=== PATIENT | male | born 1935 | race Caucasian/White ===

== ENCOUNTER 2016-10-14 13:20 | Emergency (ER) | payer MEDICARE, OTHER ==
[2016-10-14 13:31] VITALS: BP 145/89
[2016-10-14] MEDS ORDERED: Lidocaine 1% 50 ML MDV INJECT ONE (13:33)
--- NOTE | 2016-10-14 13:38 | EDM.PDOC ---
ED HPI Skin/Rash - General Chief Complaint: Laceration Stated Complaint: FALL/LACERATION TO LEFT EYEBROW Time Seen by Provider: 10/14/16 13:25 Source: Reports: Patient History Limitations: Reports: No limitations - History of Present Illness INITIAL COMMENTS - FREE TEXT/NARRATIVE: Patient is an 81-year-old male who presents ED complaining of lacerations to the left eyebrow secondary to a fall. Patient states while carrying light out to his vehicle patient tripped falling and hitting his head on the concrete sidewalk. Patient was wearing sunglasses at that time causing laceration to the left eyebrow. Patient denies any loss of consciousness was able to get up on his own accord. He denies any neck/back pain, numbness or tingling to extremities, nausea/vomiting, vision changes, shortness of breath, chest pain, dizziness, lightheadedness, or any additional complaints. States his tetanus is up-to-date. Patient states he takes aspirin daily and does not take any anticoagulant medications. Patient was on warfarin for mitral valve replacement for presumably atrial fibrillation that has since resolved, this was discontinued. 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) - Related Data Allergies Allergy/AdvReac Type Severity Reaction Status Date / Time belladonna alkaloids Allergy Other Verified 10/14/16 13:37 brimonidine [From Alphagan P] Allergy Redness Verified 10/14/16 13:37 brinzolamide [From Azopt] Allergy Other Verified 10/14/16 13:37 Home Meds: Ambulatory Orders Medication Instructions Recorded Confirmed Aspirin [[place] Aspirin] 81 mg PO DAILY 06/04/16 10/14/16 Metoprolol Succinate 75 mg PO DAILY 06/04/16 10/14/16 Simvastatin [Zocor] 40 mg PO BEDTIME 06/04/16 10/14/16 Brinzolamide [Azopt 1% Ophth Susp] 1 drop EYERT BID 06/10/16 10/14/16 Cephalexin [IJD: Cephalexin] 500 mg PO .EVERY 8 HOURS #30 cap 10/14/16 Latanoprost [Xalatan 0.005% Ophth 1 drop EYEBOTH DAILY 10/14/16 10/14/16 Soln] ED ROS GENERAL - Review of Systems Review Of Systems: See Below HEENT: Reports: Other (left eyebrow pain) Respiratory: Denies: shortness of breath, cough, sputum Cardiovascular: Denies: Chest pain, Dyspnea on exertion, Lightheadedness, Palpitations, PND, Syncope GI/Abdominal: Denies: Abdominal pain, Nausea, Vomiting : Reports: no symptoms Musculoskeletal: Denies: neck pain, shoulder pain, arm pain, back pain Skin: Reports: other (two deep lacerations to the left lateral eyebrow) Neurological: Denies: confusion, dizziness, headache, numbness, paresthesia, pre -existing deficit, tingling, difficulty walking, weakness ED EXAM, SKIN/RASH Exam: See Below Exam Limited By: No limitations General Appearance: alert, WD/WN, no apparent distress Eye Exam: bilateral eye: EOMI, PERRL Ears: normal external exam, normal canal, hearing grossly normal Nose: normal inspection, normal mucosa, no blood Throat/Mouth: Normal inspection, Normal oropharynx, Normal voice, No airway compromise Head: facial swelling (left eyebrow), facial tenderness (mild left eyebrow) Neck: normal inspection, supple, non-tender, full range of motion Respiratory/Chest: no respiratory distress, lungs clear, normal breath sounds Cardiovascular: normal peripheral pulses, regular rate, rhythm Peripheral Pulses: 2+: radial (L) Back Exam: normal inspection, full range of motion. No: paraspinal tenderness, vertebral tenderness Extremities: normal inspection, normal range of motion, non-tender, no pedal edema, normal capillary refill Neurological: alert, oriented, CN II-XII intact, normal cognition, normal gait, no motor/sensory deficits Psychiatric: normal affect, normal mood Skin: Warm, Dry, Normal color, No rash Location, Skin: face (Left lateral eye brow: two deep lacerations. ) Front/Back Body Diagram: 1 - 2 cm deep laceration to the left eye brow. 1 cm deep stellate laceration just to the left of the eye. Mild bleeding present with ecchymosis and swelling. Minimal pain with palpation of the zygomatic arch and orbit. No crepitus noted to the facial bones. ED SKIN PROCEDURES - Laceration/Wound Repair Left Forehead Lac/wound length in cm: 2 Appearance: subcutaneous Distal NVT: neuro & vascular intact Anesthetic type: local Local anesthesia - Lidocaine (Xylocaine): 1% plain Local anesthetic volume: 3cc Skin prep: saline Exploration/Debridement/Repair: wound explored, explored to base, no foreign material found Closed with: sutures Suture size: 4-0 # of sutures: 11 Suture type: prolene Drain placement: No Sterile dressing applied: nurse Tetanus status addressed: Yes Complications: No Left Face Lac/wound length in cm: 1 Appearance: subcutaneous Distal NVT: neuro & vascular intact, no tendon injury Anesthetic type: local Local anesthesia - Lidocaine (Xylocaine): 1% plain Local anesthetic volume: 2cc Skin prep: saline Exploration/Debridement/Repair: wound explored, explored to base, no foreign material found Closed with: sutures Suture size: other (4.0 and 5.0) # of sutures: 6 Suture type: prolene Drain placement: No Sterile dressing applied: nurse Tetanus status addressed: Yes Complications: No Course - Vital Signs Last Recorded V/S: Last Vital Signs Temp 97.5 F 10/14/16 13:25 Pulse 65 10/14/16 13:25 Resp 18 10/14/16 13:25 BP 145/89 H 10/14/16 13:25 Pulse Ox 98 10/14/16 13:25 - Orders/Labs/Meds Meds: Medications Discontinued Medications Generic Name Dose Route Start Last Admin Trade Name Black PRN Reason Stop Dose Admin Lidocaine HCl 50 ml 10/14/16 13:33 10/14/16 15:10 Xylocaine 1% INJECT 10/14/16 13:34 50 ml ONETIME ONE Administration - Re-Assessments/Exams Free Text/Narrative Re-Assessment/Exam: Two deep lacerations noted to the left eye brown requiring further cleaning to completely assess the depth and lenght. They both will require suturing. I have ordered lidocaine 1%. Tetanus status is uptodate. 10/14/16 13:37 Departure - Departure Time of Disposition: 14:48 Disposition: Home, Self-Care 01 Condition: good Clinical Impression: Complex laceration of face Qualifiers: Encounter type: initial encounter Qualified Code(s): S01.91XA - Laceration without foreign body of unspecified part of head, initial encounter Contusion of face Qualifiers: Encounter type: initial encounter Qualified Code(s): S00.83XA - Contusion of other part of head, initial encounter Prescriptions: Cephalexin [IJD: Cephalexin] 500 mg PO .EVERY 8 HOURS #30 cap Instructions: Facial Laceration, Facial or Scalp Contusion, [id number] Referrals: Deven Recinos Jr, MD [Primary Care Provider] - Forms: ED Department Discharge Additional Instructions: Laceration to the left eyebrow required 17 sutures in total. Please see provider while in [place], [place] in 10 days for suture removal. Suggest applying ice to the affected area 6 times daily, 20 minutes in duration, do not place ice directly on the skin. Cleanse site twice daily with soap and water, pat dry, and apply bacitracin to the affected area. Keep area clean and dry. Utilize dressing if you have any drainage. Take ibuprofen and tylenol in alternating fashion for pain. Take the keflex 500mg TID for 5 days. Take probiotic with antibiotic. Followup with a provider in [place] if you have increased swelling, increased redness, or purulent drainage, worst headache of your life, n/v, vision changes, or any focal neurological deficits. Do not submerge laceration in pool, guajardo, river, ocean, or hot tub water until completely healed.
== END 2016-10-14 15:00 | disposition home or self-care (01) ==
LOC: JD.ED 13:20
DX: S01.81XA Laceration without foreign body of other part of head, initial encounter (principal); S01.112A Laceration without foreign body of left eyelid and periocular area, initial encounter; W01.198A Fall on same level from slipping, tripping and stumbling with subsequent striking against other object, initial encounter; Y92.009 Unspecified place in unspecified non-institutional (private) residence as the place of occurrence of the external cause; Z79.82 Long term (current) use of aspirin; Z79.899 Other long term (current) drug therapy; Z88.8 Allergy status to other drugs, medicaments and biological substances
CPT/HCPCS: 12013; 13132; 99282-25; 99283-25

== ENCOUNTER 2019-07-11 17:20 | Emergency (ER) | payer MEDICARE, OTHER ==
[2019-07-11 18:03] VITALS: BP 169/83; PULSE 57
[2019-07-11] MEDS ORDERED: Sodium Chloride 0.9% 10 ML Syringe FLUSH PRN (18:28)
[2019-07-11] MEDS ORDERED: Ondansetron 4 MG/2 ML SDV IVPUSH ONE (18:29)
[2019-07-11] MEDS ORDERED: HYDROmorphone 0.5 MG/0.5 ML Syringe IVPUSH ONE (18:29)
[2019-07-11] MEDS ORDERED: Sodium Chloride 0.9% 1,000 ML IV SCH (18:30)
--- NOTE | 2019-07-11 19:08 | EDM.PDOC ---
ED HPI GENERAL MEDICAL PROBLEM - General Chief Complaint: Abdominal Pain Stated Complaint: LOW ABDOMINAL AND BACK PAIN AND SPASAMS Time Seen by Provider: 07/11/19 17:57 Source of Information: Reports: Patient, RN Notes Reviewed - History of Present Illness INITIAL COMMENTS - FREE TEXT/NARRATIVE: 84 year old male comes in with abd pain that started yesterday, more severe this afternoon associated with generalized cramping, mild vomiting, mostly dry heaves. No chest pain, fever or chills. No diarrhea, melena. He does still have his appendix and GB. Hx of prior hernia surgery. Abdominal Pain Score (Numeric/FACES): 2 - Related Data Allergies Allergy/AdvReac Type Severity Reaction Status Date / Time belladonna alkaloids Allergy Other Verified 07/11/19 18:03 brimonidine [From Alphagan P] Allergy Redness Verified 07/11/19 18:03 Home Meds: Home Meds Aspirin [[place] Aspirin] 81 mg PO DAILY 06/04/16 [History] Metoprolol Succinate 75 mg PO DAILY 06/04/16 [History] Simvastatin [Zocor] 40 mg PO BEDTIME 06/04/16 [History] Brinzolamide [Azopt 1% Ophth Susp] 1 drop EYERT BID 06/10/16 [History] Cephalexin [IJD: Cephalexin] 500 mg PO .EVERY 8 HOURS #30 cap 10/14/16 [Rx] Latanoprost [Xalatan 0.005% Ophth Soln] 1 drop EYEBOTH DAILY 10/14/16 [History] Ondansetron [Zofran ODT] 4 mg PO Q6H PRN #7 tab.dis 07/11/19 [Rx] Past Medical History HEENT History: Reports: Glaucoma Cardiovascular History: Reports: Heart Valve Replacement, Hypertension - Past Surgical History Musculoskeletal Surgical History: Reports: Knee Replacement, Shoulder Replacement Social & Family History - Tobacco Use Smoking Status *Q: Never Smoker - Caffeine Use Caffeine Use: Reports: None ED ROS GENERAL - Review of Systems Review Of Systems: See Below Constitutional: Denies: Fever, Chills, Diaphoresis HEENT: Reports: No Symptoms Respiratory: Denies: Shortness of Breath Cardiovascular: Denies: Chest Pain GI/Abdominal: Reports: Abdominal Pain, Nausea, Vomiting. Denies: Diarrhea, Hematochezia, Melena Musculoskeletal: Denies: Shoulder Pain, Arm Pain Skin: Reports: No Symptoms Neurological: Reports: No Symptoms ED EXAM, GI/ABD - Physical Exam Exam: See Below General Appearance: Alert, Mild Distress Throat/Mouth: Normal Inspection, Normal Oropharynx Neck: Supple, Full Range of Motion Respiratory/Chest: No Respiratory Distress, Lungs Clear, Normal Breath Sounds Cardiovascular: Regular Rate, Rhythm GI/Abdominal Exam: Soft, Tender (mild diffuse tenderness). No: Guarding, Rebound Back Exam: No: CVA Tenderness (L), CVA Tenderness (R) Extremities: Normal Inspection, Normal Range of Motion Neurological: Alert, Oriented, No Motor/Sensory Deficits Skin Exam: Warm, Dry, Normal Color, No Rash Course - Vital Signs Last Recorded V/S: Last Vital Signs Temp 97.2 F 07/11/19 18:00 Pulse 57 L 07/11/19 18:00 Resp 16 07/11/19 18:00 BP 169/83 H 07/11/19 18:00 Pulse Ox 95 07/11/19 18:00 - Orders/Labs/Meds Orders: Active Orders 24 hr Category Date Time Status Peripheral IV Care [RC] . DIRECTED Care 07/11/19 18:29 Active Abdomen 2V AP Flat Upright [CR] Stat Exams 07/11/19 18:52 Taken Peripheral IV Insertion Adult [OM.PC] Stat Oth 07/11/19 18:29 Ordered Labs: Laboratory Tests 07/11/19 07/11/19 07/11/19 Range/Units 18:47 18:47 18:47 WBC 7.18 (4.23-9.07) K/mm3 RBC 4.40 L (4.63-6.08) M/mm3 Hgb 13.8 (13.7-17.5) gm/dl Hct 41.0 (40.1-51.0) % MCV 93.2 H (79.0-92.2) fl MCH 31.4 (25.7-32.2) pg MCHC 33.7 (32.2-35.5) g/dl RDW Std Deviation 40.4 (35.1-43.9) fL Plt Count 221 (163-337) K/mm3 MPV 8.8 L (9.4-12.3) fl Neut % (Auto) 88.5 H (34.0-67.9) % Lymph % (Auto) 5.4 L (21.8-53.1) % [place] % (Auto) 5.2 L (5.3-12.2) % Eos % (Auto) 0.3 L (0.8-7.0) Baso % (Auto) 0.3 (0.1-1.2) % Neut # (Auto) 6.36 H (1.78-5.38) K/mm3 Lymph # (Auto) 0.39 L (1.32-3.57) K/mm3 [place] # (Auto) 0.37 (0.30-0.82) K/mm3 Eos # (Auto) 0.02 L (0.04-0.54) K/mm3 Baso # (Auto) 0.02 (0.01-0.08) K/mm3 Manual Slide Review Abnormal smear Sodium 136 (136-145) mEq/L Potassium 4.5 (3.5-5.1) mEq/L Chloride 102 (98-107) mEq/L Carbon Dioxide 27 (21-32) mEq/L Anion Gap 11.5 (5-15) BUN 26 H (7-18) mg/dL Creatinine 1.2 (0.7-1.3) mg/dL Est Cr Clr Drug Dosing 59.24 mL/min Estimated GFR (MDRD) 58 (>60) mL/min BUN/Creatinine Ratio 21.7 H (14-18) Glucose 121 H (83-115) mg/dL Calcium 10.0 (8.5-10.1) mg/dL Total Bilirubin 0.7 (0.2-1.0) mg/dL AST 32 (15-37) U/L ALT 29 (16-63) U/L Alkaline Phosphatase 272 H (46-116) U/L C-Reactive Protein < 0.2 (<1.0) mg/dL Total Protein 7.7 (6.4-8.2) g/dl Albumin 4.2 (3.4-5.0) g/dl Globulin 3.5 gm/dL Albumin/Globulin Ratio 1.2 (1-2) Lipase 120 (73-393) U/L Meds: Medications Discontinued Medications Generic Name Dose Route Start Last Admin Trade Name Freq PRN Reason Stop Dose Admin Hydromorphone HCl 0.5 mg 07/11/19 18:29 07/11/19 18:54 Dilaudid IVPUSH 07/11/19 18:30 0.5 mg ONETIME ONE Administration Sodium Chloride 1,000 mls @ 999 mls/hr 07/11/19 18:30 07/11/19 18:51 Normal Saline IV 999 mls/hr ONETIME NISHI Administration Ondansetron HCl 4 mg 07/11/19 18:29 07/11/19 18:51 Zofran IVPUSH 07/11/19 18:30 4 mg ONETIME ONE Administration Sodium Chloride 10 ml 07/11/19 18:28 07/11/19 18:51 Saline Flush FLUSH 10 ml ASDIRECTED PRN Administration Keep Vein Open - Re-Assessments/Exams Free Text/Narrative Re-Assessment/Exam: 07/11/19 23:07 WBC, CRP did come back normal. Good relief of nausea, pain with IV zofran, 0.5 mg dilaudid IV. Flat and upright of abd show no air fluid levels, moderate amt of gas and stool in colon, discharge instr. as documented. Departure - Departure Time of Disposition: 20:22 Disposition: Home, Self-Care 01 Condition: Fair Clinical Impression: Abdominal pain, Vomiting - Discharge Information Prescriptions: Ondansetron [Zofran ODT] 4 mg PO Q6H PRN #7 tab.dis PRN Reason: Nausea/Vomiting Instructions: Abdominal Pain, Adult, [id number], Vomiting, Adult Referrals: Deven Recinos Jr, MD [Primary Care Provider] - Forms: ED Department Discharge Additional Instructions: clear liquids until noon tomorrow, than very careful bland diet as tolerated. Mag citrate, drink 1/3 to 1/2 bottle tonight. Drink the remainder tomorrow morning if you have not had a good BM by than. Zofran ODT if needed for any further nausea or vomiting. Begin probiotic this evening and take that twice daily for 5 days and as needed after that. See Dr Recinos as planned. Return to ED as needed if symptoms worsening in any way. - My Orders Last 24 Hours: My Active Orders 07/11/19 18:29 Peripheral IV Care [RC] . DIRECTED Peripheral IV Insertion Adult [OM.PC] Stat 07/11/19 18:52 Abdomen 2V AP Flat Upright [CR] Stat - Assessment/Plan Last 24 Hours: My Active Orders 07/11/19 18:29 Peripheral IV Care [RC] . DIRECTED Peripheral IV Insertion Adult [OM.PC] Stat 07/11/19 18:52 Abdomen 2V AP Flat Upright [CR] Stat
--- NOTE | 2019-07-12 10:18 | CR ---
Abdomen: Supine and upright views of the abdomen were obtained. Increased density is noted within the lower pelvis having the appearance of Paget's disease. Diffuse joint space narrowing is seen within both hips. Bowel gas pattern appears within normal limits. Previous sternotomy is noted. Scoliosis is noted within the spine. No free air is seen. Mild increased stool is noted within the colon. Impression: 1. Mild increased stool within the colon. 2. Other findings as noted above which are felt to be incidental. Diagnostic code #2 This report was dictated in [place] Standard Time
== END 2019-07-11 20:41 | disposition home or self-care (01) ==
LOC: JD.ED 17:20
DX: R10.84 Generalized abdominal pain (principal); R11.2 Nausea with vomiting, unspecified; H40.9 Unspecified glaucoma; I10 Essential (primary) hypertension; Z88.8 Allergy status to other drugs, medicaments and biological substances; Z79.82 Long term (current) use of aspirin; Z79.899 Other long term (current) drug therapy
CPT/HCPCS: 36415; 74019; 80053; 83690; 85025; 86140; 96374; 96375; 99284; J1170; J2405; J7030; 99283

== ENCOUNTER 2020-03-16 01:50 | Emergency (ER) | payer MEDICARE, OTHER ==
[2020-03-16 01:59] VITALS: BP 164/115; PULSE 71
[2020-03-16] MEDS ORDERED: Sodium Chloride 0.9% 10 ML Syringe FLUSH PRN (02:10)
--- NOTE | 2020-03-16 02:22 | EDM.PDOC ---
ED HPI GENERAL MEDICAL PROBLEM - General Chief Complaint: Cardiovascular Problem Stated Complaint: TIGHTNESS IN CHEST Time Seen by Provider: 03/16/20 02:00 Source of Information: Reports: Patient, RN Notes Reviewed - History of Present Illness INITIAL COMMENTS - FREE TEXT/NARRATIVE: 85 yr old male awakened with ant. chest pain about 90 minutes ago, tightness across L ant. chest without radiation, moderately severe for a short period of time, may be up to about a half hr. Than aware of palpitations after that. Discomfort all resolved on arrival to ED. Did not get short of breath. No nausea, vomiting or diaphoresis. Hx of CABG, A flutter and for about the past month a fib. on warfarin. INR yesterday about 4.2, advised to hold his coumadin for a day or 2. No chest pain at time of exam. Left Middle Chest Pain Score (Numeric/FACES): 3 - Related Data Allergies Allergy/AdvReac Type Severity Reaction Status Date / Time belladonna alkaloids Allergy Severe Redness Verified 03/16/20 02:00 brimonidine [From Alphagan P] Allergy Severe Redness Verified 03/16/20 02:00 Home Meds: Home Meds Aspirin [[place] Aspirin] 81 mg PO DAILY 06/04/16 [History] Metoprolol Succinate 50 mg PO DAILY 06/04/16 [History] Brinzolamide [Azopt 1% Ophth Susp] 1 drop EYERT BID 06/10/16 [History] Latanoprost [Xalatan 0.005% Ophth Soln] 1 drop EYEBOTH DAILY 10/14/16 [History] Pravastatin [Pravachol] 40 mg PO DAILY 03/16/20 [History] Warfarin [Coumadin] 2 mg PO ASDIRECTED 03/16/20 [History] Warfarin [Coumadin] 4 mg PO ASDIRECTED 03/16/20 [History] Past Medical History HEENT History: Reports: Glaucoma Cardiovascular History: Reports: Afib, Heart Valve Replacement, Hypertension Respiratory History: Reports: None Gastrointestinal History: Reports: None Genitourinary History: Reports: None Neurological History: Reports: None Psychiatric History: Reports: None Endocrine/Metabolic History: Reports: None Hematologic History: Reports: Anticoagulation Therapy Immunologic History: Reports: None Oncologic (Cancer) History: Reports: None Dermatologic History: Reports: None - Infectious Disease History Infectious Disease History: Reports: None - Past Surgical History Cardiovascular Surgical History: Reports: Valve Replacement, Other (See Below) Other Cardiovascular Surgeries/Procedures: Mitral Valve Replacement Musculoskeletal Surgical History: Reports: Knee Replacement, Shoulder Replacement Social & Family History - Tobacco Use Smoking Status *Q: Never Smoker - Caffeine Use Caffeine Use: Reports: Coffee - Recreational Drug Use Recreational Drug Use: No ED ROS GENERAL - Review of Systems Review Of Systems: See Below Constitutional: Denies: Fever, Chills, Diaphoresis HEENT: Denies: Throat Pain Respiratory: Denies: Shortness of Breath, Wheezing, Pleuritic Chest Pain Cardiovascular: Reports: Chest Pain (gone), Palpitations GI/Abdominal: Denies: Abdominal Pain, Nausea, Vomiting Musculoskeletal: Denies: Neck Pain, Shoulder Pain, Arm Pain, Back Pain Skin: Reports: No Symptoms Neurological: Reports: No Symptoms ED EXAM, GENERAL - Physical Exam Exam: See Below General Appearance: Alert, No Apparent Distress Eye Exam: Bilateral Eye: PERRL Head: Atraumatic Neck: Supple Respiratory/Chest: No Respiratory Distress, Lungs Clear, Normal Breath Sounds Cardiovascular: Irregularly Irregular GI/Abdominal: Soft, Non-Tender Back Exam: No: CVA Tenderness (L), CVA Tenderness (R) Extremities: Normal Inspection, Pedal Edema (trace edema R leg). No: Leg Pain, Increased Warmth, Redness Neurological: Alert, Oriented, No Motor/Sensory Deficits Skin Exam: Warm, Dry, Normal Color EKG INTERPRETATION Rhythm: A-Fib Rate (Beats/Min): 60 [place] Neck: Normal P-Wave: Absent QRS: Normal ST-T: Other (t wave flat inf. leads. slight st depression V4-6) Course - Vital Signs Last Recorded V/S: Last Vital Signs Temp 97.9 F 03/16/20 01:55 Pulse 71 03/16/20 01:55 Resp 16 03/16/20 01:55 BP 164/115 H 03/16/20 01:55 Pulse Ox 92 L 03/16/20 01:55 - Orders/Labs/Meds Orders: Active Orders 24 hr Category Date Time Status EKG 12 Lead [EKG Documentation Completion] [RC] STAT Care 03/16/20 02:10 Active Peripheral IV Care [RC] . DIRECTED Care 03/16/20 02:11 Active Chest 1V Frontal [CR] Stat Exams 03/16/20 02:10 Taken Sodium Chloride 0.9% [Saline Flush] Med 03/16/20 02:10 Active 10 ml FLUSH ASDIRECTED PRN Peripheral IV Insertion Adult [OM.PC] Stat Oth 03/16/20 02:10 Ordered Medication Orders Sodium Chloride (Saline Flush) 10 ml FLUSH ASDIRECTED PRN PRN Reason: Keep Vein Open Last Admin: 03/16/20 02:19 Dose: 10 ml Documented by: ELBA Labs: Laboratory Tests 03/16/20 03/16/20 03/16/20 Range/Units 02:00 02:00 03:55 WBC 3.80 L (4.23-9.07) K/mm3 RBC 4.35 L (4.63-6.08) M/mm3 Hgb 13.6 L (13.7-17.5) gm/dl Hct 41.0 (40.1-51.0) % MCV 94.3 H (79.0-92.2) fl MCH 31.3 (25.7-32.2) pg MCHC 33.2 (32.2-35.5) g/dl RDW Std Deviation 42.5 (35.1-43.9) fL Plt Count 167 (163-337) K/mm3 MPV 9.6 (9.4-12.3) fl Neut % (Auto) 53.3 (34.0-67.9) % Lymph % (Auto) 31.3 (21.8-53.1) % Person % (Auto) 10.8 (5.3-12.2) % Eos % (Auto) 3.2 (0.8-7.0) Baso % (Auto) 1.1 (0.1-1.2) % Neut # (Auto) 2.03 (1.78-5.38) K/mm3 Lymph # (Auto) 1.19 L (1.32-3.57) K/mm3 Person # (Auto) 0.41 (0.30-0.82) K/mm3 Eos # (Auto) 0.12 (0.04-0.54) K/mm3 Baso # (Auto) 0.04 (0.01-0.08) K/mm3 Sodium 140 (136-145) mEq/L Potassium 4.1 (3.5-5.1) mEq/L Chloride 105 (98-107) mEq/L Carbon Dioxide 26 (21-32) mEq/L Anion Gap 13.1 (5-15) BUN 26 H (7-18) mg/dL Creatinine 1.0 (0.7-1.3) mg/dL Est Cr Clr Drug Dosing 69.82 mL/min Estimated GFR (MDRD) > 60 (>60) mL/min BUN/Creatinine Ratio 26.0 H (14-18) Glucose 96 (83-115) mg/dL Calcium 9.2 (8.5-10.1) mg/dL Total Bilirubin 0.5 (0.2-1.0) mg/dL AST 38 H (15-37) U/L ALT 40 (16-63) U/L Alkaline Phosphatase 302 H (46-116) U/L Troponin I < 0.017 < 0.017 (0.00-0.056) ng/mL Total Protein 6.5 (6.4-8.2) g/dl Albumin 3.5 (3.4-5.0) g/dl Globulin 3.0 gm/dL Albumin/Globulin Ratio 1.2 (1-2) Meds: Medications Generic Name Dose Route Start Last Admin Trade Name Freq PRN Reason Stop Dose Admin Sodium Chloride 10 ml 03/16/20 02:10 03/16/20 02:19 Saline Flush FLUSH 10 ml ASDIRECTED PRN Administration Keep Vein Open - Re-Assessments/Exams Free Text/Narrative Re-Assessment/Exam: 03/16/20 03:07. trop. is nl., he is still pain free. However is duration of discomfort including palpitations was over a half hr so will plan to do a 2 hr trop. He continues to rest comfortably pain free while here in the ED. Continued a fib. rate 76 at this time. Departure - Departure Time of Disposition: 04:49 Disposition: Home, Self-Care 01 Condition: Fair Clinical Impression: Palpitations, Atypical chest pain Instructions: Atrial Fibrillation, [id number] Referrals: Deven Recinos Jr, MD [Primary Care Provider] - Forms: ED Department Discharge Additional Instructions: Continue current medications. See Dr Salinas next Thursday as planned. Return to ED as needed if symptoms worsening in any way. Sepsis Event Note (ED) - Evaluation Sepsis Screening Result: No Definite Risk - Focused Exam Vital Signs: Vital Signs Temp Pulse Resp BP Pulse Ox 03/16/20 01:55 97.9 F 71 16 164/115 H 92 L - My Orders Last 24 Hours: My Active Orders 03/16/20 02:10 EKG 12 Lead [EKG Documentation Completion] [RC] STAT Chest 1V Frontal [CR] Stat Sodium Chloride 0.9% [Saline Flush] 10 ml FLUSH ASDIRECTED PRN Peripheral IV Insertion Adult [OM.PC] Stat 03/16/20 02:11 Peripheral IV Care [RC] . DIRECTED - Assessment/Plan Last 24 Hours: My Active Orders 03/16/20 02:10 EKG 12 Lead [EKG Documentation Completion] [RC] STAT Chest 1V Frontal [CR] Stat Sodium Chloride 0.9% [Saline Flush] 10 ml FLUSH ASDIRECTED PRN Peripheral IV Insertion Adult [OM.PC] Stat 03/16/20 02:11 Peripheral IV Care [RC] . DIRECTED
--- NOTE | 2020-03-16 08:07 | CR ---
Chest: Portable view of the chest was obtained. Comparison: No prior chest imaging is available. Heart size is slightly enlarged. Tortuous thoracic aorta is noted. Sternotomy is seen. Lungs are clear with no acute parenchymal change. Left shoulder prosthesis is noted. Impression: 1. Findings as described above. 2. Nothing acute is appreciated. Diagnostic code #2 This report was dictated in MDT
== END 2020-03-16 05:00 | disposition home or self-care (01) ==
LOC: JD.ED 01:50
DX: R07.89 Other chest pain (principal); R00.2 Palpitations; I10 Essential (primary) hypertension; I48.91 Unspecified atrial fibrillation; Z98.890 Other specified postprocedural states; Z88.8 Allergy status to other drugs, medicaments and biological substances; Z79.82 Long term (current) use of aspirin; Z79.899 Other long term (current) drug therapy
CPT/HCPCS: 36415; 71045; 71045-26; 80053; 84484; 85025; 93005; 93010; 99283; 99285-25

== ENCOUNTER 2023-03-07 08:53 | Emergency (ER) | payer MEDICARE, OTHER ==
[2023-03-07 09:01] VITALS: BP 118/80; PULSE 81
[2023-03-07] MEDS ORDERED: Bupivacaine 0.5% 50 ML MDV INFILT ONE (10:30)
[2023-03-07] MEDS ORDERED: Bupivacaine 0.5% 10 ML SDV ONE (10:34)
[2023-03-07] MEDS ORDERED: Bupivacaine 0.5% 10 ML SDV INFILT ONE (10:54)
[2023-03-07] MEDS ORDERED: Diphtheria,Pertussis(Acell),Tetanus Vaccine 0.5 ML Syringe IM ONE (11:10)
[2023-03-07] MEDS ORDERED: Bacitracin Oint 15 GM Tube TOP SCH (15:00)
== END 2023-03-07 12:10 | disposition home or self-care (01) ==
LOC: JD.ED 08:53
DX: S61.213A Laceration without foreign body of left middle finger without damage to nail, initial encounter (principal); S61.215A Laceration without foreign body of left ring finger without damage to nail, initial encounter; S61.217A Laceration without foreign body of left little finger without damage to nail, initial encounter; I48.91 Unspecified atrial fibrillation; I10 Essential (primary) hypertension; Z88.8 Allergy status to other drugs, medicaments and biological substances; Z79.82 Long term (current) use of aspirin; Z79.899 Other long term (current) drug therapy; Z79.01 Long term (current) use of anticoagulants; Z23 Encounter for immunization; W26.8XXA Contact with other sharp object(s), not elsewhere classified, initial encounter
CPT/HCPCS: 11760; 73140; 90471; 90715; 99283; J3490; 12001

== ENCOUNTER 2023-07-23 02:28 | Emergency (ER) | payer MEDICARE, OTHER ==
[2023-07-23] MEDS ORDERED: Sodium Chloride 0.9% 10 ML Syringe FLUSH PRN (02:55)
[2023-07-23 03:04] LABS: BASOPHILS PERCENT AUTO 0.5 % (0.0-1.0); EOSINOPHILS ABSOLUTE AUTO 0.1 K/mm3 (0.0-0.4); EOSINOPHILS PERCENT AUTO 1.6 % (0.0-6.0); HEMATOCRIT 41.7 % (42.0-52.0); HEMOGLOBIN 14.1 gm/dl (14.0-18.0); IMMATURE GRAN ABSOLUTE AUTO 0.03 K/mm3 (0.00-0.05); IMMATURE GRAN PERCENT AUTO 0.4 % (0.0-0.4); LYMPHOCYTES ABSOLUTE AUTO 0.8 K/mm3 (1.0-4.8); LYMPHOCYTES PERCENT AUTO 10.1 % (24.0-44.0); MEAN CORPUSCULAR HEMOGLOBIN 32.6 pg (28.0-32.0); MEAN CORPUSCULAR HGB CONC 33.8 g/dl (32.0-36.0); MEAN CORPUSCULAR VOLUME 96.5 fl (83.0-99.0); MONOCYTES ABSOLUTE AUTO 0.5 K/mm3 (0.0-0.8); MONOCYTES PERCENT AUTO 6.6 % (0.0-8.0); NEUTROPHILS ABSOLUTE AUTO 6.1 K/mm3 (1.8-7.7); NEUTROPHILS PERCENT AUTO 80.8 % (41.0-71.0); PLATELET COUNT,PLT 172 K/mm3 (150-400); RED BLOOD CELL COUNT 4.32 M/mm3 (4.52-5.90); WHITE BLOOD CELL COUNT,WBC 7.55 K/mm3 (3.9-11.3)
[2023-07-23 03:25] LABS: APPEARANCE,URINE CLEAR (Clear); BILIRUBIN,URINE NEGATIVE (Negative); COLOR,URINE YELLOW (Yellow); GLUCOSE,URINE NEGATIVE (Negative); KETONES,URINE NEGATIVE (Negative); LEUKOCYTE ESTERASE,URINE NEGATIVE (Negative); NITRITE,URINE NEGATIVE (Negative); OCCULT BLOOD,URINE NEGATIVE (Negative); PROTEIN,URINE NEGATIVE (Negative); UROBILINOGEN,URINE 0.2 (0.2-1.0)
[2023-07-23 03:39] LABS: A/G RATIO 1.2 (1-2); ALBUMIN 3.8 g/dl (3.4-5.0); ANION GAP 11.1 (5-15); BILIRUBIN TOTAL 0.7 mg/dL (0.2-1.0); CALCIUM 9.4 mg/dL (8.5-10.1); EST CRCL DRUG DOSING (CG) 66.01 mL/min; POTASSIUM,K 4.1 mEq/L (3.5-5.1)
[2023-07-23 03:57] LABS: BACTERIA,URINE FEW /hpf (FEW); EPITHELIAL CELLS,URINE 0-5 /hpf (0-5); MUCUS,URINE FEW /hpf (FEW); RBC,URINE 0-5 /hpf (0-5); WBC,URINE 0-5 /hpf (0-5)
[2023-07-23 04:24] VITALS: BP 131/68; PULSE 83
== END 2023-07-23 04:22 | disposition home or self-care (01) ==
LOC: JD.ED 02:28
DX: R07.89 Other chest pain (principal); M25.50 Pain in unspecified joint; Z88.8 Allergy status to other drugs, medicaments and biological substances; Z79.01 Long term (current) use of anticoagulants; Z79.82 Long term (current) use of aspirin
CPT/HCPCS: 36415; 71046; 80053; 81001; 83735; 84484; 85025; 93005; 99285; J3490; 93010; 99282

== ENCOUNTER 2023-09-28 14:56 | Emergency (ER) | payer MEDICARE, OTHER ==
[2023-09-28] MEDS: Sodium Chloride 0.9% 10 ML Syringe FLUSH PRN (15:15)
[2023-09-28 15:43] LABS: BASOPHILS ABSOLUTE AUTO 0.1 K/mm3 (0.0-0.2); BASOPHILS PERCENT AUTO 1.1 % (0.0-1.0); EOSINOPHILS ABSOLUTE AUTO 0.1 K/mm3 (0.0-0.4); EOSINOPHILS PERCENT AUTO 2.1 % (0.0-6.0); HEMATOCRIT 39.6 % (42.0-52.0); HEMOGLOBIN 13.7 gm/dl (14.0-18.0); IMMATURE GRAN ABSOLUTE AUTO 0.01 K/mm3 (0.00-0.05); IMMATURE GRAN PERCENT AUTO 0.2 % (0.0-0.4); LYMPHOCYTES ABSOLUTE AUTO 0.9 K/mm3 (1.0-4.8); LYMPHOCYTES PERCENT AUTO 20.9 % (24.0-44.0); MEAN CORPUSCULAR HGB CONC 34.6 g/dl (32.0-36.0); MEAN CORPUSCULAR VOLUME 95.4 fl (83.0-99.0); MEAN PLATELET VOLUME 8.9 fl (9.4-12.4); MONOCYTES ABSOLUTE AUTO 0.4 K/mm3 (0.0-0.8); MONOCYTES PERCENT AUTO 10.1 % (0.0-8.0); NEUTROPHILS ABSOLUTE AUTO 2.9 K/mm3 (1.8-7.7); NEUTROPHILS PERCENT AUTO 65.6 % (41.0-71.0); PLATELET COUNT,PLT 160 K/mm3 (150-400); RED BLOOD CELL COUNT 4.15 M/mm3 (4.52-5.90); WHITE BLOOD CELL COUNT,WBC 4.35 K/mm3 (3.9-11.3)
[2023-09-28 16:03] LABS: INR 2.29
[2023-09-28 16:13] LABS: A/G RATIO 1.2 (1-2); ALBUMIN 3.8 g/dl (3.4-5.0); ANION GAP 13.4 (5-15); BILIRUBIN TOTAL 0.9 mg/dL (0.2-1.0); BUN/CREATININE RATIO 24.4 (14-18); CALCIUM 9.5 mg/dL (8.5-10.1); CREATININE 0.9 mg/dL (0.7-1.3); EST CRCL DRUG DOSING (CG) 73.35 mL/min; MAGNESIUM 1.8 mg/dL (1.8-2.4); POTASSIUM,K 4.4 mEq/L (3.5-5.1)
[2023-09-28 17:04] VITALS: BP 142/101; PULSE 73
== END 2023-09-28 17:00 | disposition home or self-care (01) ==
LOC: JD.ED 14:56
DX: R07.9 Chest pain, unspecified (principal); I10 Essential (primary) hypertension; Z79.01 Long term (current) use of anticoagulants; Z79.82 Long term (current) use of aspirin; Z88.8 Allergy status to other drugs, medicaments and biological substances; Z79.899 Other long term (current) drug therapy
CPT/HCPCS: 36415; 71045; 80053; 83735; 84484; 85025; 85610; 93005; 99285; J3490